=== PATIENT | female | born 1970 | race American Indian/Alaskan Native ===

== ENCOUNTER 2016-12-01 20:49 | Inpatient (IN) | payer BC ==
[2016-12-01 22:03] LABS: Alanine Aminotransferase 33 units/L (7-56); Albumin 4.1 g/dL (3.9-5); Albumin/Globulin Ratio 1.4 %; Alkaline Phosphatase 101 units/L (35-129); Anion Gap 36 mmol/L; BUN/Creatinine Ratio 7.77; Blood Urea Nitrogen 7 mg/dL (7-17); Calcium 8.7 mg/dL (8.4-10.2); Carbon Dioxide 14 mmol/L (22-30); Chloride 86.8 mmol/L (98-107); Glucose 162 mg/dL (65-100); Potassium 3.5 mmol/L (3.6-5.0); Sodium 133 mmol/L (137-145); Total Protein 7.1 g/dL (6.3-8.2)
[2016-12-01 22:13] LABS: Hematocrit 33.6 % (30.3-42.9); Hemoglobin 10.9 gm/dl (10.1-14.3); Mean Corpuscular HGB Conc 32 % (30-34); Mean Corpuscular Hemoglobin 31 pg (28-32); Mean Corpuscular Volume 94 fl (79-97); Platelet Count 166 K/mm3 (140-440); Red Blood Count 3.56 M/mm3 (3.65-5.03); White Blood Count 5.3 K/mm3 (4.5-11.0)
[2016-12-01 22:19] LABS: Red Cell Distribution Width 22.6 % (13.2-15.2)
[2016-12-01] MEDS ORDERED: NACL 0.9% 1000 ML 1,000 ML IV ONE (22:29)
[2016-12-01 22:48] LABS: Anisocytosis 1+; Basophils % (Manual) 0 % (0.0-1.8); Blastocytes % (Manual) 0 %; Eosinophils % (Manual) 0 % (0.0-4.3); Platelet Estimate Consistent w Auto; Poikilocytosis 1+
[2016-12-01 22:49] LABS: Diff Status Complete
[2016-12-02] MEDS ORDERED: ANTIVERT PO ONE (00:43)
--- NOTE | 2016-12-02 00:46 | Emergency Department Report ---
ED Dizziness HPI - General Chief Complaint: Dizziness Stated Complaint: DIZZINESS Time Seen by Provider: 12/01/16 22:20 Source: patient Mode of arrival: Stretcher Limitations: No Limitations - History of Present Illness Initial Comments: Patient is a 46-year-old female past medical history of diabetes who presents with lightheadedness and fatigue. Patient was brought in by EMS. Patient's symptoms have been gradual in onset. It happened a couple hours ago she was really lightheaded while she was driving her car. She tried to continue driving her car she was on able to do it. Due to her severe lightheadedness. She states that sometimes this happens when she is hypoglycemic. She says that she's been taking glipizide which her doctor has prescribed for her. She is a type II diabetic. She states her glucoses normally within the mid 80s to 140s. Patient states that she feels slightly nauseous but no vomiting. Patient has no abdominal pain, no chest pain, no loss of consciousness, fever or paresthesias - Related Data Allergies Allergy/AdvReac Type Severity Reaction Status Date / Time morphine Allergy Itching Verified 12/01/16 21:06 ED Review of Systems ROS: Stated complaint: DIZZINESS Other details as noted in HPI Constitutional: weakness. denies: chills, fever Eyes: denies: eye pain, eye discharge, vision change ENT: denies: ear pain, throat pain Respiratory: denies: cough, shortness of breath, wheezing Cardiovascular: denies: chest pain, palpitations Endocrine: no symptoms reported Gastrointestinal: nausea. denies: abdominal pain, diarrhea Genitourinary: denies: urgency, dysuria, discharge Musculoskeletal: denies: back pain, joint swelling, arthralgia Skin: denies: rash, lesions Neurological: weakness, other (lightheadedness). denies: headache, paresthesias Psychiatric: denies: anxiety, depression Hematological/Lymphatic: denies: easy bleeding, easy bruising ED Past Medical Hx - Past Medical History Previous Medical History?: Yes Hx Diabetes: Yes - Surgical History Past Surgical History?: Yes Additional Surgical History: fibroidectomy 2004, gastric bypass 2008 - Social History Smoking Status: Never Smoker Substance Use Type: None ED Physical Exam - General Limitations: No Limitations General appearance: alert, in no apparent distress - Head Head exam: Present: atraumatic, normocephalic - Eye Eye exam: Present: normal appearance - ENT ENT exam: Present: mucous membranes moist - Neck Neck exam: Present: normal inspection - Respiratory Respiratory exam: Present: normal lung sounds bilaterally. Absent: respiratory distress - Cardiovascular Cardiovascular Exam: Present: regular rate, other (patient has a cardiac murmur) . Absent: systolic murmur, rubs, gallop - GI/Abdominal GI/Abdominal exam: Present: soft, normal bowel sounds - Extremities Exam Extremities exam: Present: normal inspection - Back Exam Back exam: Present: normal inspection - Neurological Exam Neurological exam: Present: alert, oriented X3 - Psychiatric Psychiatric exam: Present: normal affect, normal mood - Skin Skin exam: Present: warm, dry, intact, normal color. Absent: rash ED Course Vital Signs 12/01/16 12/01/16 21:10 23:35 Temperature 98.2 F Pulse Rate 123 H Pulse Rate [ 93 H Lying] Respiratory 16 Rate Blood Pressure 127/81 Blood Pressure 138/66 [Lying] O2 Sat by Pulse 100 Oximetry - Reevaluation(s) Reevaluation #1: 12/02/16 00:51 Reevaluate patient she states that she still feeling dizzy but will try to walk I will order by mouth meclizine for patient. Reevaluation #2: 12/02/16 04:23 Patient still felt lightheaded and has an elevated anion gap I will admit patient to the hospitalist service due to presyncope ED Medical Decision Making - Lab Data Result diagrams: 12/01/16 21:25 12/02/16 03:23 Labs 12/01/16 12/01/16 12/01/16 21:07 21:25 21:25 WBC 5.3 RBC 3.56 L Hgb 10.9 Hct 33.6 MCV 94 MCH 31 MCHC 32 RDW 22.6 H Plt Count 166 Add Manual Diff Complete Total Counted 100 Seg Neuts % (Manual) 82.0 H Band Neutrophils % 0 Lymphocytes % (Manual) 14.0 Reactive Lymphs % (Man) 0 Monocytes % (Manual) 4.0 Eosinophils % (Manual) 0 Basophils % (Manual) 0 Metamyelocytes % 0 Myelocytes % 0 Promyelocytes % 0 Blast Cells % 0 Nucleated RBC % Not Reportable Seg Neutrophils # Man 4.3 Band Neutrophils # 0.0 Lymphocytes # (Manual) 0.7 L Abs React Lymphs (Man) 0.0 Monocytes # (Manual) 0.2 Eosinophils # (Manual) 0.0 Basophils # (Manual) 0.0 Metamyelocytes # 0.0 Myelocytes # 0.0 Promyelocytes # 0.0 Blast Cells # 0.0 WBC Morphology Not Reportable Hypersegmented Neuts Not Reportable Hyposegmented Neuts Not Reportable Hypogranular Neuts Not Reportable Smudge Cells Not Reportable Toxic Granulation Not Reportable Toxic Vacuolation Not Reportable Dohle Bodies Not Reportable Pelger-Huet Anomaly Not Reportable Inga Rods Not Reportable Platelet Estimate Consistent w auto Clumped Platelets Not Reportable Plt Clumps, EDTA Not Reportable Large Platelets Not Reportable Giant Platelets Not Reportable Platelet Satelliting Not Reportable Plt Morphology Comment Not Reportable RBC Morphology Not Reportable Dimorphic RBCs Not Reportable Polychromasia Not Reportable Hypochromasia Not Reportable Poikilocytosis 1+ Anisocytosis 1+ Microcytosis Not Reportable Macrocytosis Not Reportable Spherocytes Not Reportable Pappenheimer Bodies Not Reportable Sickle Cells Not Reportable Target Cells Not Reportable Tear Drop Cells Not Reportable Ovalocytes Not Reportable Helmet Cells Not Reportable [place] Bodies Not Reportable [place] Rings Not Reportable [place] Cells Not Reportable Bite Cells Not Reportable Crenated Cell Not Reportable Elliptocytes Not Reportable Acanthocytes (Spur) Not Reportable Rouleaux Not Reportable Hemoglobin C Crystals Not Reportable Schistocytes Not Reportable Malaria parasites Not Reportable Geraldo Bodies Not Reportable Hem Pathologist Commnt No Sodium 133 L Potassium 3.5 L Chloride 86.8 L Carbon Dioxide 14 L Anion Gap 36 BUN 7 Creatinine 0.9 Estimated GFR > 60 BUN/Creatinine Ratio 7.77 Glucose 162 H POC Glucose 204 H Calcium 8.7 Total Bilirubin 1.10 AST 136 H ALT 33 Alkaline Phosphatase 101 Total Protein 7.1 Albumin 4.1 Albumin/Globulin Ratio 1.4 - EKG Data -: EKG Interpreted by Me - Medical Decision Making Chief medical diagnosis: Hypoglycemia Differential diagnosis: hyponatremia, hypokalemia, dehydration I will get CBC, CMP, EKG, orthostatic vitals, IV fluids and meclizine Patient is still symptomatic and has an elevated anion gap and a bicarbonate of 14. I will admit patient to the hospitalist for presyncope workup. Discussed outpatient she agrees. She states she is to lightheaded to walk. Critical care attestation.: If time is entered above; I have spent that time in minutes in the direct care of this critically ill patient, excluding procedure time. ED Disposition Clinical Impression: Lightheadedness, Pre-syncope Disposition: OP ADMIT IP TO THIS HOSP Is pt being admited?: Yes Does the pt Need Aspirin: No Condition: Stable
[2016-12-02] MEDS ORDERED: DULCOLAX PR PRN (02:53)
[2016-12-02] MEDS ORDERED: D50W (25GM) Syringe IV PRN (02:53)
[2016-12-02] MEDS ORDERED: ZOFRAN IV PRN (02:53)
[2016-12-02] MEDS ORDERED: MILK OF MAGNESIA PO PRN (02:53)
[2016-12-02] MEDS ORDERED: TYLENOL PO PRN (02:53)
[2016-12-02 04:02] LABS: Blood Urea Nitrogen 6 mg/dL (7-17); Calcium 8.9 mg/dL (8.4-10.2); Carbon Dioxide 15 mmol/L (22-30); Chloride 91.8 mmol/L (98-107); Glucose 78 mg/dL (65-100); Sodium 135 mmol/L (137-145)
[2016-12-02 04:04] LABS: Creatine Kinase MB 2.5 ng/mL (0.0-4.0)
[2016-12-02 04:06] LABS: Anion Gap 32 mmol/L; Creatine Kinase 118 units/L (30-135); Potassium 3.9 mmol/L (3.6-5.0)
[2016-12-02] MEDS: NACL 0.9% 1000 ML 1,000 ML IV SCH ×3 (05:15→20:20)
--- NOTE | 2016-12-02 06:09 | History and Physical Report ---
History of Present Illness Date of examination: 12/02/16 Date of admission: 12/02/16 03:05 History of present illness: 46-year-old woman with a history of diabetes complicated by neuropathy comes emergency room complaining of dizziness and almost passing out while she was driving. She stated her gait was unsteady and she was having palpitations Review Of Systems: Constitutional: no fever, chills, weight loss Ears, eyes, nose, mouth and throat: no nasal congestion, no nasal discharge, no sinus pressure, blurry vision, diplopia Neck: No neck pain or rigidity. Cardiovascular: chest pain, orthopnea Respiratory: No shortness of breath, cough Gastrointestinal: abdominal pain, hematochezia Genitourinary : no dysuria, frequency , hematuria Musculoskeletal: no joint swelling or muscle ache Integumentary: no rash, no pruritis Neurological: no parathesias, focal weakness Endocrine: no cold or heat intolerance, no polyuria or polydipsia Hematologic/Lymphatic: no easy bruising, no easy bleeding, no gland swelling Allergic/Immunologic: no urticaria, no angioedema. PAST MEDICAL HISTORY:diabetes complicated by neuropathy PAST SURGICAL HISTORY: History of bypass, fibroidectomy FAMILY HISTORY: Diabetes SOCIAL HISTORY: Denies alcohol, tobacco, drugs Medications and Allergies Allergies Allergy/AdvReac Type Severity Reaction Status Date / Time morphine Allergy Itching Verified 12/01/16 21:06 Home Medications Medication Instructions Recorded Confirmed Last Taken Type Gabapentin [Neurontin] 300 mg PO BID 12/02/16 12/02/16 1 Day Ago History glipiZIDE [Glucotrol] 10 mg PO BID 12/02/16 12/02/16 1 Day Ago History Aspirin [Aspirin EC] 81 mg PO QDAY #100 tablet. 12/03/16 Unknown Rx Active Meds: Active Medications Acetaminophen (Tylenol) 650 mg PO Q4H PRN PRN Reason: Pain MILD(1-3)/Fever >100.5/HOLLAND Bisacodyl (Dulcolax) 10 mg WA QDAY PRN PRN Reason: Constipation unrelieved by MOM Dextrose (D50w (25gm)) 50 ml IV PRN PRN PRN Reason: Hypoglycemia Enoxaparin Sodium (Lovenox) 40 mg SUB-Q QDAY ALE Sodium Chloride (Nacl 0.9% 1000 Ml) 1,000 mls @ 150 mls/hr IV DIRECT ALE Last Admin: 12/02/16 05:15 Dose: 150 mls/hr Insulin Aspart (Novolog) 0 units SUB-Q ACHS ALE PRN Reason: Protocol Magnesium Hydroxide (Milk Of Magnesia) 30 ml PO Q4H PRN PRN Reason: Constipation Ondansetron HCl (Zofran) 4 mg IV Q8H PRN PRN Reason: N/V unrelieved by Reglan Exam - Physical Exam Narrative exam: Gen. appearance: Patient lying in bed, no apparent distress HEENT: Normocephalic, atraumatic, pupils equally round and reactive to light, extraocular movement intact, and no sclericterus,. No JVD or thyromegaly or nodule,neck supple, no carotid bruit ,mucous membranes moist, no exudate or erythema Heart: S1, S2, regular rate and rhythm Lungs: Clear to auscultation bilaterally, breathing comfortable Abdomen: Positive bowel sounds, nontender, nondistended, no organomegaly Extremity: No edema, cyanosis, clubbing Skin: No rash, nodules, warm, dry Neuro: Oriented 3, cranial nerves II-12 intact, speech is fluent, motor and sensory intact - Constitutional Vitals: Temp Pulse Resp BP Pulse Ox 99.5 F 70 18 141/72 100 12/02/16 04:43 12/02/16 04:43 12/02/16 04:43 12/02/16 04:43 12/02/16 04:43 Results - Labs CBC & Chem 7: 12/01/16 21:25 12/02/16 03:23 Labs: Abnormal lab results 12/02/16 12/02/16 Range/Units 03:23 03:23 D-Dimer 237.91 H (0-234) ng/mlDDU Sodium 135 L (137-145) mmol/L Chloride 91.8 L (98-107) mmol/L Carbon Dioxide 15 L (22-30) mmol/L BUN 6 L (7-17) mg/dL Assessment and Plan Assessment Near-syncope Diabetes type 2 Plan Admit to medicine Check cardiac enzymes, orthostatics, CT chest, rule out PE Start IV fluid, bicarbonate is low,l repeat chemistry to rule out lab error Check fingersticks and initiate insulin sliding scale Start DVT prophylaxis
[2016-12-02] MEDS ORDERED: NACL ONE (07:35)
--- NOTE | 2016-12-02 08:28 | Cat Scan Report ---
CTA CHEST: History: Chest pain, evaluate for pulmonary embolus. Technique: Helical CT following IV contrast. Pulmonary embolus protocol. Sagittal and coronal reformatted images. Rotational MIP images. Findings: Contrast bolus is satisfactory. No pulmonary embolus is identified. An aortic arch variant is present. There is a right aortic arch. No evidence for aneurysm, dissection or atherosclerotic disease. Heart size is within normal limits. The cardiac apex is on the left side. No pericardial abnormality. The remaining mediastinal structures are within normal limits. The lungs are clear. No parenchymal lung disease, pleural effusion or pneumothorax. No thoracic fracture. Limited images of the upper abdomen demonstrate surgical changes in the proximal stomach, pancreatic calcifications consistent with chronic pancreatitis and fatty liver. On the most inferior images, there is suggestion of ulceration near a gastric suture line which is incompletely evaluated. Please correlate with the patient and consider further evaluation of the abdomen. Impression: No evidence for pulmonary embolus. Aortic arch variant. Fatty liver. Chronic pancreatitis findings. Questionable abnormality near the gastric surgical changes. Please correlate with the patient. See above.
--- NOTE | 2016-12-02 09:44 | Admit Criteria Form ---
Admission Criteria Documentation: SYNCOPE Clinical Indications for Admission to Inpatient Care ( Place 'X' for any and all applicable criteria): Admission is indicated for syncope and 1 or more of the following(1)(2)(3)(4)(5) (6)(7): [ ]I. Hemodynamic instability [ ]II. Suspicion of imminently dangerous cause (eg, subarachnoid hemorrhage, pulmonary embolism) [ ]III. Syncope causing injury requiring hospitalization [ ]IV. Respiratory distress [ ]V. Acute coronary syndrome identified. See Myocardial Infarction or Angina guideline [X ]V. Inpatient admission required rather than observation care (Also use Syncope: Observation Care Criteria as appropriate) because of 1 or more of the following: [ ]1) Cardiac arrhythmias of immediate concern identified or strongly suspected (eg, needs electrophysiologic study) [ ]2) Structural cardiac disorder (eg, aortic stenosis) suspected as cause that requires immediate treatment [ ]3) Neurologic signs or symptoms that are severe or persistent (eg, stroke, seizures, altered mental status) [ ]4) Severe electrolyte abnormalities requiring inpatient care [ ]5) Respiratory symptoms (eg, dyspnea, tachypnea) that are severe or persistent [ ]6) Dehydration that is severe or persistent [ ]7) Continuous intravenous infusion of anticoagulation, platelet inhibitor, vasoactive, or antiarrhythmic medication(15)(16 [ ]8) Pulmonary artery catheter monitoring [ ]9) Temporary pacemaker placement [ ]10) Emergent cardioversion [ X]11) Other condition,treatment,or monitoring requiring inpatient admission Extended stay beyond goal length of stay may be needed for(28) [ ]a) Dangerous arrhythmia(15)(23)(27)(29) [ ]b) Myocardial ischemia [ ]c) Seizure disorder [ ]d) Syncope-related injuries The original [employer] content created by [employer] has been revised. The portions of the content which have been revised are identified through the use of italic text or in bold, and [employer] has neither reviewed nor approved the modified material. All other unmodified content is copyright [employer]. Please see references footnoted in the original [employer] edition 2017 Admission Criteria Met: Yes
[2016-12-02] MEDS: NOVOLOG SUB-Q SCH ×4 (09:56→22:06)
[2016-12-02] MEDS: LOVENOX SUB-Q SCH (09:56)
[2016-12-02 11:31] LABS: Creatine Kinase MB 2.6 ng/mL (0.0-4.0)
[2016-12-02 11:32] LABS: Creatine Kinase 102 units/L (30-135)
[2016-12-02] MEDS: NEURONTIN PO SCH (22:06)
[2016-12-03] MEDS: NACL 0.9% 1000 ML 1,000 ML IV SCH ×2 (02:26→10:01)
[2016-12-03] MEDS: NOVOLOG SUB-Q SCH ×3 (09:00→18:01)
[2016-12-03] MEDS: NEURONTIN PO SCH (10:02)
[2016-12-03] MEDS: LOVENOX SUB-Q SCH (10:02)
--- NOTE | 2016-12-03 15:13 | Discharge Summary ---
Providers - Providers Date of Admission: 12/02/16 03:05 Date of discharge: 12/03/16 Attending physician: MERCEDES STEVENS Primary care physician: CARD PLACER Hospitalization Condition: Stable Hospital course: History of present illness: 46-year-old woman with a history of diabetes complicated by neuropathy comes emergency room complaining of dizziness and almost passing out while she was driving. She stated her gait was unsteady and she is was having palpitations Review Of Systems: Constitutional: no fever, chills, weight loss Ears, eyes, nose, mouth and throat: no nasal congestion, no nasal discharge, no sinus pressure, blurry vision, diplopia Neck: No neck pain or rigidity. Cardiovascular: chest pain, orthopnea Respiratory: No shortness of breath, cough Gastrointestinal: abdominal pain, hematochezia Genitourinary : no dysuria, frequency , hematuria Musculoskeletal: no joint swelling or muscle ache Integumentary: no rash, no pruritis Neurological: no parathesias, focal weakness Endocrine: no cold or heat intolerance, no polyuria or polydipsia Hematologic/Lymphatic: no easy bruising, no easy bleeding, no gland swelling Allergic/Immunologic: no urticaria, no angioedema. PAST MEDICAL HISTORY:diabetes complicated by neuropathy PAST SURGICAL HISTORY: History of bypass, fibroidectomy FAMILY HISTORY: Diabetes SOCIAL HISTORY: Denies alcohol, tobacco, drugs CDS and ECHO normal Disposition: - TO HOME OR SELFCARE - Discharge Diagnoses (1) Pre-syncope Status: Acute Comment: Work up negative.EF 55 to 60 percent (2) T2DM (type 2 diabetes mellitus) Status: Chronic Qualifiers: Diabetes mellitus complication status: without complication Diabetes mellitus complication detail: D Diabetic retinopathy severity: D Proliferative retinopathy type: P Diabetes mellitus macular edema: D Diabetes mellitus skilled nursing insulin use: D Laterality: L Chronic kidney disease stage: C Comment: Cont Glipizide Core Measure Documentation - Palliative Care Palliative Care/ Comfort Measures: Not Applicable - Core Measures Any of the following diagnoses?: none Exam - Constitutional Vitals: Temp Pulse Resp BP Pulse Ox 98.4 F 80 18 138/78 100 12/03/16 11:25 12/03/16 11:25 12/03/16 11:25 12/03/16 11:25 12/03/16 11:25 General appearance: Present: no acute distress, well-nourished - EENT Eyes: Present: PERRL ENT: hearing intact, clear oral mucosa - Neck Neck: Present: supple, normal ROM - Respiratory Respiratory effort: normal Respiratory: bilateral: CTA - Cardiovascular Heart Sounds: Present: S1 & S2. Absent: rub, click - Extremities Extremities: pulses symmetrical, No edema Peripheral Pulses: within normal limits - Abdominal General gastrointestinal: Present: soft, non-tender, non-distended, normal bowel sounds Female genitourinary: Present: normal - Integumentary Integumentary: Present: clear, warm, dry - Musculoskeletal Musculoskeletal: gait normal, strength equal bilaterally - Psychiatric Psychiatric: appropriate mood/affect, intact judgment & insight - Neurologic Neurologic: CNII-XII intact, moves all extremities Plan Activity: no restrictions Diet: low fat, low salt Follow up with: PRIMARY CARE, [Primary Care Provider] - 3-5 Days
[2016-12-03 17:58] VITALS: BP 127/82
--- NOTE | 2016-12-07 08:28 | Query- General ---
Mariya Trevizo____Kecia Date:____12/07/16 Forms Builder/CDS:____Kaitlynn / Glynn Phone#:___[phone] Exercise your independent professional judgment when responding to this query. Questions asked do not imply a particular answer is desired or expected. We greatly appreciate your clarification on this issue. Clinical Documentation States: 46 year old female was admitted on 12/02/16. The discharge summary (Dr. Mcdonnell) states " 46-year-old woman with a history of diabetes complicated by neuropathy comes emergency room complaining of dizziness and almost passing out while she was driving. She stated her gait was unsteady and she is was having palpitations - Discharge Diagnoses (1) Pre-syncope Comment: Work up negative.EF 55 to 60 percent " Given the above clinical scenario can you please provide an appropriate diagnosis based on your knowledge of the patient: Please clarify the possible etiology of syncope: PHYSICIAN RESPONSE: Possible etiology of syncope: Tachycardia/Arrhythmia Present on Admission: [x ] Yes (Y) [ ] Clinically undeterminable (W) [ ]No(N) Please also document response in your Progress Notes and/or Discharge Summary and indicate if the condition was present on admission. TONIE
--- NOTE | 2016-12-07 08:31 | Query- Abnormal Electrolytes ---
Mariya Trevizo Kecia Date:____12/07/16 Hot Saw Helper/CDS:____Shanaltagracia / [place]nn Phone#:___[phone] Exercise your independent professional judgment when responding to this query. Questions asked do not imply a particular answer is desired or expected. We greatly appreciate your clarification on this issue. Clinical Documentation States: 46 year old female was admitted on 12/02/16. The discharge summary (Dr. Mcdonnell) states " 46-year-old woman with a history of diabetes complicated by neuropathy comes emergency room complaining of dizziness and almost passing out while she was driving. " Clinical Findings Show: Sodium : 133 Can you please clarify whether you mean? [x ] Hyponatremia [ ] Hypokalemia [ ] Hypocalcemia [ ] Hypomagnesemia [ ] Hypernatremia [ ] Hyperkalemia [ ] Hypercalcemia [ ] Hypermagnesemia [ ] Sodium deficiency [ ] Potassium deficiency [ ] Hypochloremia [ ] Sodium excess [ ] Potassium excess [ ] Hyperchloremia [ ] Sodium overload [ ] Potassium overload [ ] Hypophosphatemia [ ] Hyperphosphatemia Acidosis; [ ] Respiratory [ ] Metabolic Alkalosis; [ ] Respiratory [ ] Metabolic [ ] Other: [ ] Comment/Explanation: Present on Admission: [ x] Yes (Y) [ ] Clinically undeterminable (W) [ ]No(N) Please also document response in your Progress Notes and/or Discharge Summary and indicate if the condition was present on admission. MTDD
--- NOTE | 2016-12-07 09:24 | Vascular Lab Report ---
CAROTID DUPLEX STUDY: RIGHT PSVEDV CCA PROX:[id number] CCA DIST: 6217 ICA PROX: 4517 ICA MID: 7132 ICA DIST: 8739 ECA: 123 VERT: 47 13 LEFT PSVEDV CCA PROX:[id number] CCA DIST: 5115 ICA PROX: 4519 ICA MID: 6025 ICA DIST: 9140 ECA: 53 VERT: 73 17 REASON FOR EXAM: Carotid artery stenosis/pre-syncope. COMMENTS ON THE RIGHT: Doppler frequency analysis is consistent with 16 to 49 percent diameter reduction of the internal carotid artery. Minimal amount of plaque is seen. The common carotid artery is patent. The external carotid artery is patent. The vertebral artery has antegrade flow. COMMENTS ON THE LEFT: Doppler frequency analysis is consistent with 16 to 49 percent diameter reduction of the internal carotid artery. Minimal amount of plaque is seen. The common carotid artery is patent. The external carotid artery is patent. The vertebral artery has antegrade flow. IMPRESSION: Less than 50% diameter reduction in the internal carotid arteries bilaterally. Consider repeat carotid artery duplex in 12 months.
== END 2016-12-03 18:37 | disposition home or self-care (01) | DRG 309 ==
LOC: ED 20:49 → 4A 12-02 03:05
PROVIDERS: ADMIT Internal Medicine; ATTEND Internal Medicine
DX: I49.9 Cardiac arrhythmia, unspecified (principal); E87.1 Hypo-osmolality and hyponatremia; R00.0 Tachycardia, unspecified; R55 Syncope and collapse; E11.40 Type 2 diabetes mellitus with diabetic neuropathy, unspecified; Z98.84 Bariatric surgery status; Z83.3 Family history of diabetes mellitus; Z88.5 Allergy status to narcotic agent
CPT/HCPCS: 36415; 71275; 80048; 80053; 82010; 82140; 82550; 82553; 82962; 84484; 85025; 85379; 93005; 93010; 93306; 93880; 99285; J1650; J1815; J7030; Q9967